=== PATIENT | female | born 1960 | race Caucasian/White ===

== ENCOUNTER 2018-07-18 16:32 | Observation (INO) | payer OTHER ==
[2018-07-18] MEDS ORDERED: Labetalol 5 mg/ml Inj 20ML IVP STA ×2 (16:52→18:26)
[2018-07-18] MEDS ORDERED: Labetalol 5mg/ml (4ml) IVP STA (16:59)
[2018-07-18] MEDS ORDERED: Labetalol 5mg/ml (4ml) ONE (17:12)
--- NOTE | 2018-07-18 17:16 | ED PDOC ---
Syncope/Near Syncope/Dizziness Time Seen by Provider: 07/18/18 16:45 Chief Complaint (Nursing): Weakness/Neurological Deficit Chief Complaint (Provider): Left leg numbness History Per: Patient History/Exam Limitations: no limitations Onset/Duration Of Symptoms: Days (1X month ago ) Current Symptoms Are (Timing): Still Present Additional Complaint(s): 58 year old female with no past medical history presents to the ED with left leg numbness beginning 1 month ago. Patient was seen by neurologist Dr. Ulises Strong ([place]) this morning and was referred to the ED for an MRI based on suspicion of possible CVA which occurred 1X month ago. Patient denies any new symptoms since then. Patient found to be hypertensive in the office and has took her sisters Metoprolol 50 mg 1X. Patient denies, headaches, dizziness, blurry vision, weakness, numbness, shortness of breath, chest pains and paresthesia. PMD: Balta Armenta MD Past Medical History Reviewed: Historical Data, Nursing Documentation, Vital Signs Vital Signs: Last Vital Signs Temp 97.6 F 07/18/18 16:38 Pulse 91 H 07/18/18 16:38 Resp 18 07/18/18 16:38 BP 234/149 H 07/18/18 16:38 Pulse Ox 99 07/18/18 16:38 CINDY Report Viewed: Yes - Medical History PMH: No Chronic Diseases, CVA (suspicion 1X month ago ) - Surgical History Surgical History: No Surg Hx - Family History Family History: States: No Known Family Hx - Allergies Allergies/Adverse Reactions: Allergies Allergy/AdvReac Type Severity Reaction Status Date / Time No Known Allergies Allergy Verified 07/18/18 16:44 Review of Systems ROS Statement: Except As Marked, All Systems Reviewed And Found Negative Constitutional: Negative for: Fever Eyes: Negative for: Vision Change (blurry vision) Cardiovascular: Negative for: Chest Pain Respiratory: Negative for: Shortness of Breath Neurological: Positive for: Numbness (Left leg ). Negative for: Weakness, Headache, Dizziness, Other (paresthesia) Physical Exam - Reviewed Nursing Documentation Reviewed: Yes Vital Signs Reviewed: Yes - Physical Exam Appears: Positive for: Well, Non-toxic, No Acute Distress Head Exam: Positive for: ATRAUMATIC, NORMAL INSPECTION, NORMOCEPHALIC Skin: Positive for: Normal Color, Warm. Negative for: Rash Eye Exam: Positive for: EOMI, Normal appearance, PERRL ENT: Positive for: Normal ENT Inspection Neck: Positive for: Normal, Painless ROM Cardiovascular/Chest: Positive for: Regular Rate, Rhythm Respiratory: Positive for: CNT, Normal Breath Sounds Gastrointestinal/Abdominal: Positive for: Normal Exam, Soft Back: Positive for: Normal Inspection Extremity: Positive for: Normal ROM (upper and lower extremities ). 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 Negative for: Cerebellar Tests, Motor/Sensory Deficits, Facial Droop - Laboratory Results Result Diagrams: 07/18/18 17:13 07/18/18 17:13 - ECG O2 Sat by Pulse Oximetry: 99 (RA) Pulse Ox Interpretation: Normal Medical Decision Making Medical Decision Makin:45 Initial Impression: 58 year old female presents to the ED with left leg numbness. Blood Pressure: 191/127 H Patient is currently not exhibiting symptoms or signs of CVA. Will treat for hypertension and obtain head CT as well as blood work. BP will be managed in ED. Initial Plan: * CBC with differential * Complete metabolic panel * Troponin 1 * ED Urine Dipstick * Electrocardiogram * Chest two views (PA/LAT) * CT-Head * Trandate 5mg/ml (4ml) 10 mg IVP Discussed with Dr. Armenta, coming in to see pt. Will place in obs for uncontrolled hypertension and BP treatment. Scribe Attestation: Documented by Amrita Castillo, acting as a scribe for Abdoul Moise MD Provider Scribe Attestation: All medical record entries made by the Scribe were at my direction and personally dictated by me. I have reviewed the chart and agree that the record accurately reflects my personal performance of the history, physical exam, medical decision making, and the department course for this patient. I have also personally directed, reviewed, and agree with the discharge instructions and disposition. Disposition - Clinical Impression Clinical Impression: Hypertension - Patient ED Disposition Is Patient to be Admitted: Yes - Disposition Disposition Time: 20:04 Condition: FAIR Forms: [facility] ([place]ovenian) - Pt Status Changed To: Hospital Disposition Of: Observation - POA Present On Arrival: None
[2018-07-18 17:31] LABS: BASO # 0.1 K/uL (0.0-0.2); BASO % 0.9 % (0.0-2.0); EOS # 0.1 K/uL (0.0-0.7); EOS % 0.5 % (0.0-4.0); HEMOGLOBIN 14.6 g/dL (12.0-16.0); LYMPH # 2.1 K/uL (1.0-4.3); LYMPH % 17.8 % (20.0-40.0); MEAN CELL VOLUME 85.3 fl (81.0-99.0); MEAN CORPUSCULAR HEMOGLOBIN 28.7 pg (27.0-31.0); MEAN CORPUSCULAR HGB CONC 33.6 g/dL (33.0-37.0); MEAN PLATELET VOLUME 8.7 fl (7.2-11.7); MONO # 0.5 K/uL (0.0-0.8); MONO % 4.3 % (0.0-10.0); NEUT # 9.1 K/uL (1.8-7.0); NEUT % 76.5 % (50.0-75.0); RBC 5.09 Mil/uL (3.80-5.20); RED CELL DISTRIBUTION WIDTH 13.9 % (11.5-14.5); WHITE BLOOD COUNT 11.9 K/uL (4.8-10.8)
[2018-07-18 17:37] LABS: ALB/GLOB RATIO 1.2 (1.0-2.1); ALBUMIN 4.7 g/dL (3.5-5.0); BLOOD UREA NITROGEN 11 mg/dl (7-17); CALCIUM 10.7 mg/dL (8.4-10.2); GFR NON-AFRICAN AMERICAN > 60
[2018-07-18 17:40] LABS: ALT/SGPT 25 U/L (9-52); AST/SGOT 26 U/L (14-36)
--- NOTE | 2018-07-18 17:57 | RAD ---
Date of service: 07/18/2018 HISTORY: Hypertension COMPARISON: No prior. TECHNIQUE: Chest PA and lateral FINDINGS: LINES AND TUBES: None. LUNG AND PLEURA: The lungs are well inflated and clear. No pleural effusion or pneumothorax. HEART AND MEDIASTINUM: The heart is not enlarged. No aortic atherosclerotic calcifications present. The hilar and mediastinal contours are within normal limits. SKELETAL STRUCTURES: The bony structures are within normal limits for the patient's age. VISUALIZED UPPER ABDOMEN: Normal. OTHER FINDINGS: None. IMPRESSION: No active pulmonary disease.
--- NOTE | 2018-07-18 18:00 | CT ---
Date of service: 07/18/2018 PROCEDURE: CT HEAD WITHOUT CONTRAST. HISTORY: r/o bleed COMPARISON: None available. TECHNIQUE: Axial computed tomography images were obtained through the head/brain without intravenous contrast. Radiation dose: Total exam DLP = 826.84 mGy-cm. This CT exam was performed using one or more of the following dose reduction techniques: Automated exposure control, adjustment of the mA and/or kV according to patient size, and/or use of iterative reconstruction technique. FINDINGS: HEMORRHAGE: No intracranial hemorrhage. BRAIN: There are mild chronic microangiopathic changes. There are chronic lacunar infarctions in the right wilkins radiata and basal ganglia. There is no mass, mass effect or abnormal extra-axial fluid collection. There is no territorial infarction. The midline sagittal structures are normal. VENTRICLES: The ventricles are normal in size, shape and configuration. CALVARIUM: There is no calvarial fracture or extracranial soft tissue swelling. There is mild hyperostosis frontalis interna. PARANASAL SINUSES: Predominantly clear. MASTOID AIR CELLS: Predominantly clear. OTHER FINDINGS: None. IMPRESSION: No acute intracranial abnormality. Mild chronic microangiopathic changes. Chronic lacunar infarctions in the right wilkins radiata and basal ganglia.
[2018-07-19] MEDS: Enoxaparin 40 mg Syringe SC SCH (08:42)
--- NOTE | 2018-07-19 11:34 | CP.PCM.CON ---
History of Present Illness - History of Present Illness History of Present Illness: Julio César Otero, PGY-1, Cardiology Consult Note for Dr. Bull 58 year old female with past medical history of hypertension who has not seen her PCP in 17 years presents with systolic blood pressure over 200, left back pain radiating to the left leg with associated left lower extremity numbness. Patient has had no change in strength of right or left side of body. The pains started 1 month ago. Patient denies chest pain, shortness of breath, nausea, diaphoresis, left arm pain, jaw pain. 12-point ROS was unremarkable except for what was mentioned above. PMH: hypertension PSH: appendectomy in 2001 FMHx: denies SHx: denies alcohol, tobacco and recreational drug use Allergies: NKDA PMD: Dr. Armenta Cardiologies: denies Denies having a previous catheterization or stress test. Review of Systems - Review of Systems Review of Systems: except for what was mentioned in HPI Past Patient History - Past Medical History & Family History Past Medical History?: Yes - Past Social History Smoking Status: Never Smoked - CARDIAC Hx Cardiac Disorders: No - PULMONARY Hx Respiratory Disorders: No - NEUROLOGICAL Hx Neurological Disorder: Yes Other/Comment: left leg numbness last may 2018 - HEENT Hx HEENT Problems: Yes - RENAL Hx Chronic Kidney Disease: No - ENDOCRINE/METABOLIC Hx Endocrine Disorders: No - HEMATOLOGICAL/ONCOLOGICAL Hx Blood Disorders: No - INTEGUMENTARY Hx Dermatological Problems: No - MUSCULOSKELETAL/RHEUMATOLOGICAL Hx Musculoskeletal Disorders: No Hx Falls: No - GASTROINTESTINAL Hx Gastrointestinal Disorders: No - GENITOURINARY/GYNECOLOGICAL Hx Genitourinary Disorders: No - PSYCHIATRIC Hx Psychophysiologic Disorder: No Hx Substance Use: No - SURGICAL HISTORY Hx Surgeries: Yes Hx Appendectomy: Yes - ANESTHESIA Hx Anesthesia: Yes Hx Anesthesia Reactions: No Hx Malignant Hyperthermia: No Has any member of the family had a problem w/ anesthesia?: No Meds Allergies/Adverse Reactions: Allergies Allergy/AdvReac Type Severity Reaction Status Date / Time No Known Allergies Allergy Verified 07/18/18 16:44 - Medications Medications: Current Medications Amlodipine Besylate (Norvasc) 10 mg PO DAILY [facility] Last Admin: 07/19/18 08:44 Dose: 10 mg Aspirin (Aspirin Chewable) 81 mg PO DAILY [facility] Last Admin: 07/19/18 08:43 Dose: 81 mg Atorvastatin Calcium (Lipitor) 40 mg PO DAILY [facility] Last Admin: 07/19/18 08:42 Dose: 40 mg Enoxaparin Sodium (Lovenox) 40 mg SC DAILY [facility]; Protocol Last Admin: 07/19/18 08:42 Dose: 40 mg Hydrochlorothiazide (Microzide) 12.5 mg PO DAILY [facility] Last Admin: 07/19/18 08:43 Dose: 12.5 mg Losartan Potassium (Cozaar) 25 mg PO DAILY [facility] Last Admin: 07/19/18 08:41 Dose: 25 mg Physical Exam - Constitutional Appears: Well, Non-toxic, No Acute Distress - Head Exam Head Exam: ATRAUMATIC, NORMAL INSPECTION, NORMOCEPHALIC - Eye Exam Eye Exam: EOMI, PERRL - ENT Exam ENT Exam: Mucous Membranes Moist - Respiratory Exam Respiratory Exam: Clear to Auscultation Bilateral, NORMAL BREATHING PATTERN - Cardiovascular Exam Cardiovascular Exam: REGULAR RHYTHM, RRR, +S1, +S2 - GI/Abdominal Exam GI & Abdominal Exam: Normal Bowel Sounds, Soft. absent: Tenderness - Extremities Exam Extremities exam: Positive for: full ROM, normal inspection. Negative for: pedal edema - Neurological Exam Neurological exam: Alert, CN II-XII Intact, Oriented x3 - Skin Skin Exam: Dry, Intact, Normal Color Results - Vital Signs Recent Vital Signs: Last Vital Signs Temp 98.1 F 07/19/18 08:00 Pulse 81 07/19/18 08:44 Resp 20 07/19/18 08:00 BP 183/104 H 07/19/18 08:44 Pulse Ox 94 L 07/19/18 08:00 - Labs Result Diagrams: 07/18/18 17:13 07/18/18 17:13 Labs: Laboratory Results - last 24 hr 07/18/18 07/18/18 07/18/18 17:13 17:13 21:50 WBC 11.9 H RBC 5.09 Hgb 14.6 Hct 43.4 MCV 85.3 MCH 28.7 MCHC 33.6 RDW 13.9 Plt Count 273 MPV 8.7 Neut % (Auto) 76.5 H Lymph % (Auto) 17.8 L [place] % (Auto) 4.3 Eos % (Auto) 0.5 Baso % (Auto) 0.9 Neut # (Auto) 9.1 H Lymph # (Auto) 2.1 [place] # (Auto) 0.5 Eos # (Auto) 0.1 Baso # (Auto) 0.1 Sodium 142 Potassium 4.3 Chloride 107 Carbon Dioxide 25 Anion Gap 14 BUN 11 Creatinine 0.7 Est GFR ( Amer) > 60 Est GFR (Non-Af Amer) > 60 Random Glucose 116 H Uric Acid 5.0 Calcium 10.7 H Total Bilirubin 0.6 AST 26 ALT 25 Alkaline Phosphatase 128 H Troponin I < 0.0120 Total Protein 8.6 H Albumin 4.7 Globulin 3.9 Albumin/Globulin Ratio 1.2 Triglycerides 149 Cholesterol 237 H LDL Cholesterol Direct 145 H HDL Cholesterol 39 Vitamin B12 322 TSH 3rd Generation 3.55 Assessment & Plan - Assessment and Plan (Free Text) Assessment: Hypertensive urgency vs. emergency Plan: Hypertensive urgency vs. emergency Head CT: no acute intracranial abnormality CXR: no active pulm disease EKG: NSR T Chol: 237 LDL: 145 Tropx1: negative Follow up echocardiogram Follow up metanephrine and catecholamines to evaluate for pheochromocytoma as cause of uncontrolled hypertension. Follow up plasma renin/aldosterone to evaluate for hyperaldosteronism Blood pressure upon presentation was 234/149. Last blood pressure was 183/104. Continue with antihypertensive regimen. As over 6 hours past presentation, lower blood pressure to <140/90 cautiously. Medications: amlodipine 10 mg daily HCTZ 25 mg daily Cozaar 50 mg daily Clonidine 0.1 mg BID aspirin 81 mg daily atorvastatin 40 mg daily - Date & Time Date: 07/19/18 Time: 11:35
[2018-07-19 12:48] LABS: FOLATE 5.7 ng/mL
[2018-07-19 12:49] LABS: URINE BILIRUBIN NEGATIVE (NEGATIVE); URINE CLARITY N (Clear); URINE COLOR N (YELLOW); URINE GLUCOSE (UA) NEGATIVE (NEGATIVE)
[2018-07-19 12:58] LABS: SQUAMOUS EPITHIAL 1 /hpf (0-5); URINE BLOOD TRACE-INTACT (NEGATIVE); URINE LEUKOCYTE ESTERASE NEGATIVE Leu/uL (Negative); URINE PROTEIN NEGATIVE (NEGATIVE)
--- NOTE | 2018-07-19 13:04 | CP.PCM.HP ---
History of Present Illness - History of Present Illness History of Present Illness: Patient presented in ER with elevated BP SBP > 200. Bennie presnted in my office with back pain weakness and at the physical examination she had a deviation of tongue to rt rt. She denies any previous hx of htn, dyspnea, orthopnea,dizzin ess, blurred vision, nausea, vomiting. She was placed on 4 meds but still th SBP is elevated more than 180. W/U pending Present on Admission - Present on Admission Any Indicators Present on Admission: No Review of Systems - Constitutional Constitutional: As Per HPI - EENT Eyes: As Per HPI - Cardiovascular Cardiovascular: As Per HPI - Respiratory Respiratory: As Per HPI - Gastrointestinal Gastrointestinal: As Per HPI - Musculoskeletal Musculoskeletal: As Per HPI - Neurological Neurological: As Per HPI - Psychiatric Psychiatric: As Per HPI Past Patient History - Past Medical History & Family History Past Medical History?: Yes - Past Social History Smoking Status: Never Smoked - CARDIAC Hx Cardiac Disorders: No - PULMONARY Hx Respiratory Disorders: No - NEUROLOGICAL Hx Neurological Disorder: Yes Other/Comment: left leg numbness last may 2018 - HEENT Hx HEENT Problems: Yes - RENAL Hx Chronic Kidney Disease: No - ENDOCRINE/METABOLIC Hx Endocrine Disorders: No - HEMATOLOGICAL/ONCOLOGICAL Hx Blood Disorders: No - INTEGUMENTARY Hx Dermatological Problems: No - MUSCULOSKELETAL/RHEUMATOLOGICAL Hx Musculoskeletal Disorders: No Hx Falls: No - GASTROINTESTINAL Hx Gastrointestinal Disorders: No - GENITOURINARY/GYNECOLOGICAL Hx Genitourinary Disorders: No - PSYCHIATRIC Hx Psychophysiologic Disorder: No Hx Substance Use: No - SURGICAL HISTORY Hx Surgeries: Yes Hx Appendectomy: Yes - ANESTHESIA Hx Anesthesia: Yes Hx Anesthesia Reactions: No Hx Malignant Hyperthermia: No Has any member of the family had a problem w/ anesthesia?: No Meds Allergies/Adverse Reactions: Allergies Allergy/AdvReac Type Severity Reaction Status Date / Time No Known Allergies Allergy Verified 07/18/18 16:44 Physical Exam - Constitutional Appears: Non-toxic - Head Exam Head Exam: ATRAUMATIC, NORMAL INSPECTION, NORMOCEPHALIC - Eye Exam Eye Exam: Normal appearance - ENT Exam ENT Exam: Mucous Membranes Dry - Neck Exam Neck exam: Positive for: Normal Inspection - Respiratory Exam Respiratory Exam: Clear to Auscultation Bilateral - Cardiovascular Exam Cardiovascular Exam: REGULAR RHYTHM, +S1, +S2 - GI/Abdominal Exam GI & Abdominal Exam: Normal Bowel Sounds - Extremities Exam Extremities exam: Positive for: normal inspection - Neurological Exam Neurological exam: Alert, Oriented x3 - Psychiatric Exam Psychiatric exam: Normal Affect - Skin Skin Exam: Normal Color Results - Vital Signs Recent Vital Signs: Last Vital Signs Temp 99.0 F 07/19/18 12:51 Pulse 88 07/19/18 12:51 Resp 20 07/19/18 12:51 BP 189/102 H 07/19/18 12:51 Pulse Ox 99 07/19/18 12:51 - Labs Result Diagrams: 07/18/18 17:13 07/18/18 17:13 Labs: Laboratory Results - last 24 hr 07/18/18 07/18/18 07/18/18 17:13 17:13 21:50 WBC 11.9 H RBC 5.09 Hgb 14.6 Hct 43.4 MCV 85.3 MCH 28.7 MCHC 33.6 RDW 13.9 Plt Count 273 MPV 8.7 Neut % (Auto) 76.5 H Lymph % (Auto) 17.8 L [place] % (Auto) 4.3 Eos % (Auto) 0.5 Baso % (Auto) 0.9 Neut # (Auto) 9.1 H Lymph # (Auto) 2.1 [place] # (Auto) 0.5 Eos # (Auto) 0.1 Baso # (Auto) 0.1 Sodium 142 Potassium 4.3 Chloride 107 Carbon Dioxide 25 Anion Gap 14 BUN 11 Creatinine 0.7 Est GFR ( Amer) > 60 Est GFR (Non-Af Amer) > 60 Random Glucose 116 H Uric Acid 5.0 Calcium 10.7 H Total Bilirubin 0.6 AST 26 ALT 25 Alkaline Phosphatase 128 H Troponin I < 0.0120 Total Protein 8.6 H Albumin 4.7 Globulin 3.9 Albumin/Globulin Ratio 1.2 Triglycerides 149 Cholesterol 237 H LDL Cholesterol Direct 145 H HDL Cholesterol 39 Vitamin B12 322 Folate 5.7 TSH 3rd Generation 3.55 Assessment & Plan (1) TIA (transient ischemic attack) Status: Acute (2) Hypertension Status: Acute
--- NOTE | 2018-07-19 13:09 | CP.PCM.CON ---
History of Present Illness - History of Present Illness History of Present Illness: Neurology consult dictated. Plan: 1. MRI Brain without contrast. 2. Control hypertension. Thank you Dr. Pham Past Patient History - Past Medical History & Family History Past Medical History?: Yes - Past Social History Smoking Status: Never Smoked - CARDIAC Hx Cardiac Disorders: No - PULMONARY Hx Respiratory Disorders: No - NEUROLOGICAL Hx Neurological Disorder: Yes Other/Comment: left leg numbness last may 2018 - HEENT Hx HEENT Problems: Yes - RENAL Hx Chronic Kidney Disease: No - ENDOCRINE/METABOLIC Hx Endocrine Disorders: No - HEMATOLOGICAL/ONCOLOGICAL Hx Blood Disorders: No - INTEGUMENTARY Hx Dermatological Problems: No - MUSCULOSKELETAL/RHEUMATOLOGICAL Hx Musculoskeletal Disorders: No Hx Falls: No - GASTROINTESTINAL Hx Gastrointestinal Disorders: No - GENITOURINARY/GYNECOLOGICAL Hx Genitourinary Disorders: No - PSYCHIATRIC Hx Psychophysiologic Disorder: No Hx Substance Use: No - SURGICAL HISTORY Hx Surgeries: Yes Hx Appendectomy: Yes - ANESTHESIA Hx Anesthesia: Yes Hx Anesthesia Reactions: No Hx Malignant Hyperthermia: No Has any member of the family had a problem w/ anesthesia?: No Meds Allergies/Adverse Reactions: Allergies Allergy/AdvReac Type Severity Reaction Status Date / Time No Known Allergies Allergy Verified 07/18/18 16:44 - Medications Medications: Current Medications Amlodipine Besylate (Norvasc) 10 mg PO DAILY [facility] Last Admin: 07/19/18 08:44 Dose: 10 mg Aspirin (Aspirin Chewable) 81 mg PO DAILY [facility] Last Admin: 07/19/18 08:43 Dose: 81 mg Atorvastatin Calcium (Lipitor) 40 mg PO DAILY [facility] Last Admin: 07/19/18 08:42 Dose: 40 mg Clonidine HCl (Catapres) 0.1 mg PO BID [facility] Last Admin: 07/19/18 12:58 Dose: 0.1 mg Enoxaparin Sodium (Lovenox) 40 mg SC DAILY [facility]; Protocol Last Admin: 07/19/18 08:42 Dose: 40 mg Hydrochlorothiazide (Hydrodiuril) 25 mg PO DAILY [facility] Losartan Potassium (Cozaar) 50 mg PO DAILY [facility] Results - Vital Signs Recent Vital Signs: Last Vital Signs Temp 99.0 F 07/19/18 12:51 Pulse 96 H 07/19/18 12:58 Resp 20 07/19/18 12:51 BP 189/102 H 07/19/18 12:58 Pulse Ox 99 07/19/18 12:51 - Labs Result Diagrams: 07/18/18 17:13 07/18/18 17:13 Labs: Laboratory Results - last 24 hr 07/18/18 07/18/18 07/18/18 17:13 17:13 21:50 WBC 11.9 H RBC 5.09 Hgb 14.6 Hct 43.4 MCV 85.3 MCH 28.7 MCHC 33.6 RDW 13.9 Plt Count 273 MPV 8.7 Neut % (Auto) 76.5 H Lymph % (Auto) 17.8 L [place] % (Auto) 4.3 Eos % (Auto) 0.5 Baso % (Auto) 0.9 Neut # (Auto) 9.1 H Lymph # (Auto) 2.1 [place] # (Auto) 0.5 Eos # (Auto) 0.1 Baso # (Auto) 0.1 Sodium 142 Potassium 4.3 Chloride 107 Carbon Dioxide 25 Anion Gap 14 BUN 11 Creatinine 0.7 Est GFR ( Amer) > 60 Est GFR (Non-Af Amer) > 60 Random Glucose 116 H Uric Acid 5.0 Calcium 10.7 H Total Bilirubin 0.6 AST 26 ALT 25 Alkaline Phosphatase 128 H Troponin I < 0.0120 Total Protein 8.6 H Albumin 4.7 Globulin 3.9 Albumin/Globulin Ratio 1.2 Triglycerides 149 Cholesterol 237 H LDL Cholesterol Direct 145 H HDL Cholesterol 39 Vitamin B12 322 Folate 5.7 TSH 3rd Generation 3.55 Urine Color Urine Clarity Urine pH Ur Specific [place] Urine Protein Urine Glucose (UA) Urine Ketones Urine Blood Urine Nitrate Urine Bilirubin Urine Urobilinogen Ur Leukocyte Esterase Urine RBC (Auto) Urine Microscopic WBC Ur Squamous Epith Cells 07/19/18 11:30 WBC RBC Hgb Hct MCV MCH MCHC RDW Plt Count MPV Neut % (Auto) Lymph % (Auto) [place] % (Auto) Eos % (Auto) Baso % (Auto) Neut # (Auto) Lymph # (Auto) [place] # (Auto) Eos # (Auto) Baso # (Auto) Sodium Potassium Chloride Carbon Dioxide Anion Gap BUN Creatinine Est GFR ( Amer) Est GFR (Non-Af Amer) Random Glucose Uric Acid Calcium Total Bilirubin AST ALT Alkaline Phosphatase Troponin I Total Protein Albumin Globulin Albumin/Globulin Ratio Triglycerides Cholesterol LDL Cholesterol Direct HDL Cholesterol Vitamin B12 Folate TSH 3rd Generation Urine Color N Urine Clarity N Urine pH 6.0 Ur Specific [place] 1.020 Urine Protein Negative Urine Glucose (UA) Negative Urine Ketones Negative Urine Blood Trace-intact Urine Nitrate Negative Urine Bilirubin Negative Urine Urobilinogen 1.0 Ur Leukocyte Esterase Negative Urine RBC (Auto) 2 Urine Microscopic WBC 3 Ur Squamous Epith Cells 1
--- NOTE | 2018-07-19 16:45 | US ---
Date of service: 07/19/2018 PROCEDURE: Ultrasonography renal arterial evaluation HISTORY: r/o renal artery stenosis COMPARISON: None available. TECHNIQUE: Real-time ultrasonography evaluation of the renal arteries were performed. Comparison is made to the aorta. Report prepared by cath lab technologist. FINDINGS: AORTA: Patent. Peak systolic velocity 88.1 centimeters/second RIGHT RENAL ARTERY: Renal artery to aorta ratio: 1.6 * Proximal segment: Patent. Peak systolic velocity 106.0 centimeters/second * Mid segment: Patent. Peak systolic velocity 140.8 centimeters/second * Distal segment: Patent. Peak systolic velocity 73.6 centimeters/second Other findings: Right Kidney measures approximately 5 x 11.1 centimeters. LEFT RENAL ARTERY: Renal artery to aorta ratio: 1.1 * Proximal segment: Patent. Peak systolic velocity 101.1 centimeters/second * Mid segment: Patent. Peak systolic velocity 86.0 centimeters/second * Distal segment: Patent. Peak systolic velocity 78.5 centimeters/second Other findings: Left Kidney measures approximately 4.4 x 11.2 centimeters. IMPRESSION: Limited evaluation. No definite hemodynamically significant stenosis involving the renal arteries as visualized. (Please note that the proximal left peroneal artery was not visualized.
--- NOTE | 2018-07-19 16:51 | US ---
Date of service: 07/19/2018 PROCEDURE: Duplex ultrasound of the carotid and vertebral arteries. HISTORY: htn uncontrolled, r/o stenosis COMPARISON: None available. TECHNIQUE: Grayscale and duplex Doppler evaluation of the cervical carotid and vertebral arteries were performed. The common carotid, carotid bifurcations and cervical ICA and proximal ECA were evaluated. The vertebral arteries were evaluated for gross patency and direction. FINDINGS: RIGHT CAROTID ARTERIES: Common Carotid Artery: Maximal flow velocity of 90.8 cm/s. Carotid Bifurcation: Normal. Internal Carotid Artery:Tortuous right ICA. Heterogeneous plaque formation. Maximal flow velocity of 68.8 cm/s. External Carotid Artery (proximal branches): Maximal flow velocity of 135.5 cm/s. ICA/CCA Ratio: 0.8 LEFT CAROTID ARTERIES: Common Carotid Artery: Maximal flow velocity of 110.6 cm/s. Carotid Bifurcation: Intimal thickening is present Internal Carotid Artery:Tortuous left ICA. Heterogeneous plaque formation. Maximal flow velocity of 92.5 cm/s. External Carotid Artery (proximal branches): Maximal flow velocity of 124.1 cm/s. ICA/CCA Ratio: 0.8 VERTEBRAL ARTERIES: Right Vertebral Artery: Patent. Antegrade flow. Left Vertebral Artery: Patent. Antegrade flow. OTHER FINDINGS: Atherosclerotic calcification present. IMPRESSION: Right ICA degree of stenosis: Less than 50% Left ICA degree of stenosis: Less than 50% Reference Internal Carotid Artery (ICA) Peak Systolic Velocity (PSV) for above: 1. Less than 50% stenosis less than 125 cm/s peak systolic velocity 2. 50-69% stenosis 125-230cm/s peak systolic velocity 3. Greater than 70% but less than near occlusion greater than 230 cm/s peak systolic velocity
--- NOTE | 2018-07-19 17:47 | CARD ---
APPROVED REPORT Date of service: 07/19/2018 EXAM: Two-dimensional and M-mode echocardiogram with Doppler and color Doppler. Other Information Quality : AverageRhythm : Tachycardia INDICATION Hypertension/HCVD 2D DIMENSIONS IVSd1.53 (0.7-1.1cm)LVDd2.54 (3.9-5.9cm) LVOT Diameter2.04 (1.8-2.4cm)PWd1.67 (0.7-1.1cm) IVSs1.57 (0.8-1.2cm)LVDs2.04 (2.5-4.0cm) FS (%) 19.8 %PWs1.67 (0.8-1.2cm) M-Mode DIMENSIONS Left Atrium (MM)3.35 (2.5-4.0cm)IVSd1.41 (0.7-1.1cm) Aortic Root3.44 (2.2-3.7cm)LVDd4.74 (4.0-5.6cm) Aortic Cusp Exc.2.09 (1.5-2.0cm)PWd1.47 (0.7-1.1cm) IVSs1.97 cmFS (%) 51 % LVDs2.32 (2.0-3.8cm)PWs2.09 cm Aortic Valve AoV Peak Vgbphndv938.5cm/sAoV VTI23.4cmAO Peak GR.9mmHg LVOT Peak Nfhttngj795.3cm/sLVOT VTI23.87cmAO Mean GR.5mmHg MAVERICK (VMAX)1.24tu6VTJ (VTI)1.71cm2 Mitral Valve MV E Kkmdwgdl99.7cm/sMV DECEL GLXM901naND A Kwmpahxh44.8cm/s MV DSZ52eaM/A ratio0.7MVA (PHT)5.09cm2 TDI Lateral E' Peak V6.68cm/sMedial E' Peak V7.01cm/sE/Lateral E'10.4 E/Medial E'9.9 LEFT VENTRICLE The left ventricle is normal size. There is moderate concentric left ventricular hypertrophy. The left ventricular systolic function is normal. The estimated ejection fraction is 60-65% No regional wall motion abnormalities noted.. Transmitral Doppler flow pattern is Grade I-abnormal relaxation pattern. No left ventricle thrombus noted on this study. There is no ventricular septal defect visualized. There is no left ventricular aneurysm. There is no mass noted in the left ventricle. RIGHT VENTRICLE The right ventricle is normal size. There is normal right ventricular wall thickness. The right ventricular systolic function is normal. ATRIA The left atrium is borderline dilated. The right atrium size is normal. The interatrial septum is intact with no evidence for an atrial septal defect. AORTIC VALVE The aortic valve is normal in structure. No aortic regurgitation is present. There is no aortic valvular stenosis. There is no aortic valvular vegetation. MITRAL VALVE The mitral valve is normal in structure. There is no evidence of mitral valve prolapse. There is no mitral valve stenosis. There is no mitral valve regurgitation noted. TRICUSPID VALVE The tricuspid valve is normal in structure. There is no tricuspid valve regurgitation noted. There is no tricuspid valve prolapse or vegetation. There is no tricuspid valve stenosis. PULMONIC VALVE The pulmonary valve is normal in structure. There is no pulmonic valvular regurgitation. There is no pulmonic valvular stenosis. GREAT VESSELS The aortic root is normal in size. The ascending aorta is normal in size. The pulmonary artery is normal. The IVC is normal in size and collapses >50% with inspiration. PERICARDIAL EFFUSION There is no pericardial effusion. There is no pleural effusion. <Conclusion> There is moderate concentric left ventricular hypertrophy. The estimated ejection fraction is 60-65% Transmitral Doppler flow pattern is Grade I-abnormal relaxation pattern. The left atrium is borderline dilated. There is no tricuspid valve regurgitation noted.
--- NOTE | 2018-07-19 22:32 | CARD ---
APPROVED REPORT Date of service: 07/18/2018 EKG Measurement Heart [id number] <Conclusion> Normal sinus rhythm Normal ECG
--- NOTE | 2018-07-20 00:18 | CON ---
DATE: 07/19/2018 Neurology consult called by Dr. Sandra. HISTORY OF PRESENT ILLNESS: Ms. Marcy Green is a 58-year-old woman with no known past medical history because she did not go to physicians. She presented to the emergency room yesterday evening with left-sided numbness, beginning one month ago. The patient was seen by neurologist, Dr. Strong this morning, was referred for deep brain MRI because he was concerned for possible stroke that happened one month ago. Today on exam, the patient has no clinical symptoms. MRI of the brain was done. The result is still pending. She was found to be extremely hypertensive in the office, and she states she did not follow up with physicians. REVIEW OF SYSTEMS: Today, negative for headache, dizziness, blurring of vision, weakness, numbness, paresthesias. PAST MEDICAL HISTORY: Not known. PAST SURGICAL HISTORY: None. FAMILY HISTORY AND SOCIAL HISTORY: Lives with sister. Does not work currently. ALLERGIES: NO KNOWN DRUG ALLERGIES. MEDICATIONS AT HOME: Medications currently are amlodipine 10 mg p.o. daily, aspirin 81 mg, Lipitor, Lovenox, Microzide and Cozaar. PHYSICAL EXAMINATION: VITAL SIGNS: In the ER, blood pressure 234/149, pulse is 91, respiratory rate 18, temperature 97.6. NEUROLOGIC: Alert, oriented x3. Cranial nerves II through XII normal. There is exophthalmos bilaterally. No facial droop. Motor strength 5/5 in upper and lower limbs bilaterally. Sensory is intact to fine touch and pin. Gait is slightly abnormal, but within normal limits. She is not ataxic. She can walk heel-toe. Reflexes are +2 in upper and lower limbs bilaterally. Toes are downgoing. There is no clonus. Speech is fluent. LABORATORY DATA: White count 11.9, hemoglobin 14.6, hematocrit 43.6. Chemistry was within normal limits. PT, PTT and INR were completely normal as well. IMPRESSION: This is a 58-year-old woman with hypertensive urgency and possible transient ischemic attack. PLAN: 1. MRI of the brain. 2. As above is indicative of recurrent stroke, we would do stroke workup. Thank you for this interesting consult. Nya Pham MD [facility] # [id number]
[2018-07-20 08:06] VITALS: O2SAT 97
[2018-07-20] MEDS: Enoxaparin 40 mg Syringe SC SCH (08:52)
--- NOTE | 2018-07-20 12:44 | CP.PCM.PN ---
Subjective - Date & Time of Evaluation Date of Evaluation: 07/20/18 Time of Evaluation: 12:43 - Subjective Subjective: BP well controlled no c/o nop cp no sob no n/v Will dc home Objective - Vital Signs/Intake and Output Vital Signs (last 24 hours): Temp Pulse Resp BP Pulse Ox 97.9 F 76 18 128/75 97 07/20/18 11:51 07/20/18 11:51 07/20/18 11:51 07/20/18 11:51 07/20/18 11:51 - Medications Medications: Current Medications Amlodipine Besylate (Norvasc) 10 mg PO DAILY [facility] Last Admin: 07/20/18 08:50 Dose: 10 mg Aspirin (Aspirin Chewable) 81 mg PO DAILY [facility] Last Admin: 07/20/18 08:51 Dose: 81 mg Atorvastatin Calcium (Lipitor) 40 mg PO DAILY [facility] Last Admin: 07/20/18 08:51 Dose: 40 mg Clonidine HCl (Catapres) 0.1 mg PO BID [facility] Last Admin: 07/20/18 08:51 Dose: 0.1 mg Enoxaparin Sodium (Lovenox) 40 mg SC DAILY [facility]; Protocol Last Admin: 07/20/18 08:52 Dose: 40 mg Hydrochlorothiazide (Hydrodiuril) 25 mg PO DAILY [facility] Last Admin: 07/20/18 08:51 Dose: 25 mg Losartan Potassium (Cozaar) 50 mg PO DAILY [facility] Last Admin: 07/20/18 08:51 Dose: 50 mg - Labs Labs: 07/18/18 17:13 07/18/18 17:13 - Constitutional Appears: Well - Head Exam Head Exam: ATRAUMATIC, NORMAL INSPECTION, NORMOCEPHALIC - Eye Exam Eye Exam: Normal appearance - ENT Exam ENT Exam: Mucous Membranes Moist - Neck Exam Neck Exam: Full ROM - Respiratory Exam Respiratory Exam: Clear to Ausculation Bilateral - Cardiovascular Exam Cardiovascular Exam: REGULAR RHYTHM, +S1, +S2 - GI/Abdominal Exam GI & Abdominal Exam: Soft, Normal Bowel Sounds - Extremities Exam Extremities Exam: Normal Inspection - Neurological Exam Neurological Exam: Alert, Awake, CN II-XII Intact, Normal Gait, Oriented x3 - Psychiatric Exam Psychiatric exam: Normal Affect - Skin Skin Exam: Normal Color Assessment and Plan (1) TIA (transient ischemic attack) Status: Acute (2) Hypertension Status: Acute
[2018-07-20 14:22] LABS: BLOOD UREA NITROGEN 22 mg/dl (7-17); GFR NON-AFRICAN AMERICAN 57
[2018-07-20 16:54] VITALS: BP 122/76; PULSE 88; RESP 16; TEMP 98.4
== END 2018-07-20 16:30 | disposition home or self-care (01) ==
LOC: H.ER 16:32 → H.ERHOLD 20:01 → H.TEL 21:38
PROVIDERS: ADMIT Internal Medicine; ATTEND Internal Medicine
DX: I16.0 Hypertensive urgency (principal); G45.9 Transient cerebral ischemic attack, unspecified; I10 Essential (primary) hypertension; Z86.73 Personal history of transient ischemic attack (TIA), and cerebral infarction without residual deficits
CPT/HCPCS: 36415; 70450; 71046; 76770; 80048; 80053; 80061; 81003; 82088; 82330; 82384; 82607; 82746; 83835; 83970; 84244; 84443; 84484; 84550; 85025; 93005; 93306; 93880; 96374; 99285; G0378; J1650

== ENCOUNTER 2018-08-21 09:12 | Emergency (ER) | payer OTHER ==
[2018-08-21 09:16] VITALS: BMI 32.1
[2018-08-21 09:18] VITALS: TEMP 97.8
--- NOTE | 2018-08-21 09:54 | ED PDOC ---
HPI: General Adult Time Seen by Provider: 08/21/18 09:15 Chief Complaint (Nursing): Weakness/Neurological Deficit Chief Complaint (Provider): Weakness/Neurological Deficit History Per: Patient History/Exam Limitations: no limitations Onset/Duration Of Symptoms: Hrs Current Symptoms Are (Timing): Still Present Additional Complaint(s): 58 year old female with a past medical history of hypertension who is presenting to the ED for evaluation of shakiness and numbness to right palm onset earlier this morning. Patient states that her legs also feel stiff but is able to a mbulate. She admits that she was told by Dr. Armenta to come to the ED for evaluation. Of note, patient is on the following medications: Hydrochlorothiazide, Losartan, Clonidine, Amlodipine, and Aspirin. Patient denies any chest pain, shortness of breath, or any other medical complaints. PMD: Balta Armenta Past Medical History Reviewed: Historical Data, Nursing Documentation, Vital Signs Vital Signs: Last Vital Signs Temp 97.8 F 08/21/18 09:17 Pulse 116 H 08/21/18 09:17 Resp 18 08/21/18 09:17 BP 160/118 H 08/21/18 09:17 Pulse Ox 99 08/21/18 09:17 - Medical History PMH: CVA (suspicion 1X month ago ), HTN Denies: Chronic Kidney Disease - Surgical History Surgical History: Appendectomy - Family History Family History: States: Unknown Family Hx - Social History Current smoker - smoking cessation education provided: No Alcohol: None Drugs: Denies - Home Medications Home Medications: Ambulatory Orders Medication Instructions Recorded Losartan [Cozaar] 50 mg PO DAILY tab 07/20/18 amLODIPine [Norvasc] 10 mg PO DAILY tab 07/20/18 cloNIDine [Catapres] 0.1 mg PO BID tab 07/20/18 hydroCHLOROthiazide [Hydrodiuril] 25 mg PO DAILY tab 07/20/18 Aspirin [Ecotrin] 81 mg PO DAILY 08/21/18 - Allergies Allergies/Adverse Reactions: Allergies Allergy/AdvReac Type Severity Reaction Status Date / Time No Known Allergies Allergy Verified 07/18/18 16:44 Review of Systems ROS Statement: Except As Marked, All Systems Reviewed And Found Negative Constitutional: Positive for: Other (shaky ) Cardiovascular: Negative for: Chest Pain Respiratory: Negative for: Shortness of Breath Musculoskeletal: Positive for: Other (leg stiffness and right palm numbness ) Physical Exam - Reviewed Nursing Documentation Reviewed: Yes Vital Signs Reviewed: Yes - Physical Exam Appears: Positive for: Non-toxic, No Acute Distress Head Exam: Positive for: ATRAUMATIC, NORMAL INSPECTION, NORMOCEPHALIC Skin: Positive for: Normal Color, Warm, DRY Eye Exam: Positive for: EOMI, Normal appearance, PERRL ENT: Positive for: Normal ENT Inspection Neck: Positive for: Normal, Painless ROM, Supple Cardiovascular/Chest: Positive for: Regular Rate, Rhythm. Negative for: Murmur Respiratory: Positive for: Normal Breath Sounds. Negative for: Respiratory Distress Gastrointestinal/Abdominal: Positive for: Normal Exam, Soft. Negative for: Tenderness Extremity: Positive for: Normal ROM, Other (strength 5/5 in all extremities ). Negative for: Deformity, Swelling Neurological/Psych: Positive for: Awake, Alert, Normal Tone, Oriented (x3). Negative for: Motor/Sensory Deficits - Laboratory Results Result Diagrams: 08/21/18 09:55 08/21/18 09:55 - ECG O2 Sat by Pulse Oximetry: 99 (RA) Pulse Ox Interpretation: Normal Medical Decision Making Medical Decision Making: Time: 9:39 Plan: --EKG --CMP --Magnesium --Phosphorous --ED Urine Dipstick --CBC --Urinalysis Case discussed with Dr. Pham, no imaging needed at this time, agrees with discharge home. Case discussed with Dr. Armenta, agrees with discharge home. --- Scribe Attestation: Documented by Queta Rubio, acting as a scribe for Lizz Crouch MD. Provider Scribe Attestation: All medical record entries made by the Scribe were at my direction and personally dictated by me. I have reviewed the chart and agree that the record accurately reflects my personal performance of the history, physical exam, medical decision making, and the department course for this patient. I have also personally directed, reviewed, and agree with the discharge instructions and d isposition. Disposition - Clinical Impression Clinical Impression: Hand numbness - Disposition Referrals: Balta Armenta MD [Staff Provider] - Nya Pham MD [Medical Doctor] - Disposition: Routine/Home Disposition Time: 13:29 Condition: STABLE Instructions: Hand Numbness Forms: [employer] (Vietnamese)
[2018-08-21 10:09] LABS: BASO # 0.1 K/uL (0.0-0.2); BASO % 0.7 % (0.0-2.0); EOS % 0.4 % (0.0-4.0); HEMOGLOBIN 13.3 g/dL (12.0-16.0); LYMPH # 1.6 K/uL (1.0-4.3); LYMPH % 14.5 % (20.0-40.0); MEAN CELL VOLUME 85.3 fl (81.0-99.0); MEAN CORPUSCULAR HEMOGLOBIN 28.8 pg (27.0-31.0); MEAN CORPUSCULAR HGB CONC 33.8 g/dL (33.0-37.0); MEAN PLATELET VOLUME 8.5 fl (7.2-11.7); MONO # 0.5 K/uL (0.0-0.8); MONO % 4.3 % (0.0-10.0); NEUT % 80.1 % (50.0-75.0); RBC 4.6 Mil/uL (3.80-5.20); RED CELL DISTRIBUTION WIDTH 13.8 % (11.5-14.5); WHITE BLOOD COUNT 11.2 K/uL (4.8-10.8)
[2018-08-21 10:17] LABS: ALB/GLOB RATIO 1.3 (1.0-2.1); ALBUMIN 4.6 g/dL (3.5-5.0); ALT/SGPT 37 U/L (9-52); AST/SGOT 36 U/L (14-36); BLOOD UREA NITROGEN 19 mg/dl (7-17); CALCIUM 10.5 mg/dL (8.4-10.2); GFR NON-AFRICAN AMERICAN 57
[2018-08-21 10:23] LABS: SQUAMOUS EPITHIAL 1 /hpf (0-5); URINE BACTERIA RARE (<OCC); URINE BILIRUBIN NEGATIVE (NEGATIVE); URINE BLOOD NEGATIVE (NEGATIVE); URINE CLARITY SLIGHTY-CLOUDY (Clear); URINE COLOR YELLOW (YELLOW); URINE GLUCOSE (UA) NEG (NEGATIVE); URINE LEUKOCYTE ESTERASE TRACE Leu/uL (Negative); URINE PROTEIN NEGATIVE (NEGATIVE); URINE UROBILINOGEN 0.2-1.0 mg/dL (0.2-1.0)
[2018-08-21 13:22] VITALS: BP 130/79; PULSE 76; RESP 15
--- NOTE | 2018-08-21 19:43 | CARD ---
APPROVED REPORT Date of service: 08/21/2018 EKG Measurement Heart [id number] <Conclusion> Normal sinus rhythm Nonspecific ST abnormality Abnormal ECG
[2018-08-25 07:38] VITALS: O2SAT 99
== END 2018-08-21 14:05 | disposition home or self-care (01) ==
LOC: H.ER 09:12
DX: R20.2 Paresthesia of skin (principal)